=== PATIENT | male | born 1980 | race Hispanic/Latino ===

== ENCOUNTER 2018-06-23 14:44 | Observation (INO) | payer SELFPAY ==
[2018-06-23] MEDS ORDERED: Bupivacaine/Epinephrine 0.25% 30 ML VIAL ONE (15:14)
[2018-06-23] MEDS ORDERED: cefOXitin Sodium/Dextrose,Iso 2 GM in Premix Bag 1 BAG IVPB SCH (15:15)
[2018-06-23] MEDS ORDERED: Famotidine/PF 20 mg/2ml Vial ONE (15:24)
[2018-06-23] MEDS ORDERED: Meperidine HCl/PF 25 MG/ML VIAL ONE (15:24)
[2018-06-23] MEDS ORDERED: Fentanyl 100 MCG/2 ML VIAL ONE (15:24)
[2018-06-23] MEDS ORDERED: Midazolam HCl 2 mg/2 ml Vial ONE (15:57)
--- NOTE | 2018-06-23 16:20 | HP ---
HISTORY OF PRESENT ILLNESS: Mr. Dan is a 37-year-old man, [place]-speaking only, who presented to [facility] in [place], complaining of insidious onset of periumbilical abdominal pain, which started 2 days previously. Pain was associated with abdominal bloating and since then in right lower quadrant. Pain was associated with episodes of nonbilious emesis. Last episode of emesis was yesterday. Patient attempted to have breakfast this morning with poor oral intake of tacos. He admits to some chills, although unsure if he has had any fever. He denies any diarrhea. PAST MEDICAL HISTORY: Denies any previous medical problems. PAST SURGICAL HISTORY: He denies any past surgeries except for repair of laceration to the left wrist. 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 He admits to drinking 6 pack of beer a day and since onset of his abdominal pain , he has only had one beer. He denies any cigarette smoking or illicit drug abuse. FAMILY HISTORY: The patient denies any family history of diabetes mellitus, hypertension, heart disease, or cancer. PREHOSPITALIZATION MEDICATIONS: None. ALLERGIES: THE PATIENT DENIES ANY KNOWN DRUG ALLERGIES. REVIEW OF SYSTEMS: 10-point review of systems is essentially unremarkable except as stated in past medical history and chief complaint. PHYSICAL EXAMINATION: GENERAL: This reveals a 37-year-old normally developed man, who is otherwise coherent, interactive, and appears stated age. The patient is alert and oriented x3. Appears to be in no acute distress at the time of my evaluation. VITAL SIGNS: Blood pressure is 106/64, pulse 117, respiratory rate is 22, temperature of 100.1 degrees Fahrenheit, oxygen saturation 98% on room air. HEENT: Reveals normocephalic and atraumatic. Pupils are equal, round, reactive to light and accommodation. Extraocular muscles are intact bilaterally. No scleral icterus present. HEART: Reveals regular rate with sinus tachycardia. No murmurs or gallops auscultated. LUNGS: Clear to auscultation bilaterally. Breathing, regular and nonlabored. ABDOMEN: Soft and moderately distended. He has right lower quadrant tenderness at McBurney's. He has a positive Rovsing sign. Liver and spleen are otherwise nonpalpable below costal margin. EXTREMITIES: Reveal 2+ radial and pedal pulses bilaterally. No ankle edema is present. NEUROLOGIC: Reveals no focal deficits present. LABORATORY FINDINGS: Today includes a CBC obtained earlier at [facility] with 2100 white blood cells, hemoglobin and hematocrit of 13.7 and 41.7 respectively, platelet count is 129,000. Metabolic profile; sodium 133, potassium 4.1, chloride is 98, bicarb 21, BUN 9, creatinine 0.75, glucose 139, total bilirubin is 2.3, AST and ALT are elevated at 162 and 96 respectively. Serum lipase is normal at 50. PTT and INR normal at 32.8 seconds and 1.1 respectively. I have personally reviewed the CT scan of the abdomen and pelvis, which was obtained prior to transfer to our facility and this reveals a dilated appendix with periappendiceal fat stranding. No pneumoperitoneum or significant free fluid is noted. IMPRESSION: 1. Acute appendicitis. 2. Abnormal LFTs, likely secondary to chronic alcoholism. PLAN: 1. Laparoscopic appendectomy. 2. We will initiate prophylaxis against VTE 3. Above findings and plan have been discussed with the patient through a back tender insulation board and also in the presence of the patient's nurse. 4. I have advised the patient of the risks and benefits of the proposed surgery to include, but not limited to bleeding, infection, injury to bile duct or surrounding structures. 5. The patient indicates understanding of information provided. 6. I have answered all his questions. 7. The patient has granted consent for this admission and surgical intervention. Job ID: [id number] MTDD
[2018-06-23] MEDS ORDERED: Ondansetron PF 4 MG/2 ML Vial ONE (16:27)
[2018-06-23] MEDS ORDERED: Ketorolac Tromethamine 30 MG/ML VIAL ONE (16:27)
[2018-06-23] MEDS ORDERED: Rocuronium Bromide 10 MG/ML (10ML VIAL) ONE (16:27)
[2018-06-23] MEDS ORDERED: Succinylcholine Chloride 20 MG/ML 10 ml SYRINGE FS ONE (16:27)
[2018-06-23] MEDS ORDERED: Lidocaine 1% PF 5 ML VIAL ONE (16:27)
[2018-06-23] MEDS ORDERED: PROPOFOL 200 MG/20 ML VIAL ONE (16:27)
[2018-06-23] MEDS ORDERED: Glycopyrrolate 0.2 MG/ML 5 ML SYRINGE ONE (16:27)
[2018-06-23] MEDS ORDERED: Dexamethasone 20 MG/5 ML VIAL ONE (16:27)
[2018-06-23] MEDS ORDERED: Meperidine HCl/PF 25 MG/ML VIAL SLOW IVP PRN (16:54)
[2018-06-23] MEDS ORDERED: Promethazine HCl 25 MG/ML VIAL SLOW IVP PRN (16:54)
[2018-06-23] MEDS ORDERED: Ondansetron HCl/PF 4 MG/2 ML Vial IVP PRN (16:54)
[2018-06-23] MEDS ORDERED: Promethazine HCl 25 MG/ML VIAL IM PRN ×2 (16:54→18:07)
[2018-06-23] MEDS ORDERED: Dextrose 5% in Water 1,000 ML IV PRN (18:07)
[2018-06-23] MEDS ORDERED: hydrALAZINE 20 MG/ML VIAL SLOW IVP PRN (18:07)
[2018-06-23] MEDS ORDERED: traMADol HCl 50 MG TAB PO PRN ×2 (18:07)
[2018-06-23] MEDS ORDERED: Acetaminophen 325 MG TAB PO PRN (18:07)
[2018-06-23] MEDS ORDERED: Dextrose 50% Abboject 50 ML SYRINGE SLOW IVP PRN (18:07)
[2018-06-23] MEDS ORDERED: Ondansetron PF 4 MG/2 ML Vial IVP PRN (18:07)
[2018-06-23] MEDS ORDERED: Ketorolac Tromethamine 30 MG/ML VIAL IVP SCH (18:30)
[2018-06-23 18:33] VITALS: BMI 21.4
[2018-06-23] MEDS: Lactated Ringer's 1,000 ML IV SCH (19:27)
[2018-06-23] MEDS: Famotidine/PF 20 mg/2ml Vial SLOW IVP SCH (21:22)
[2018-06-23] MEDS: cefOXitin Sodium/Dextrose,Iso 2 GM in Premix Bag 1 BAG IVPB SCH (21:22)
[2018-06-24] MEDS: Ketorolac Tromethamine 30 MG/ML VIAL IVP SCH ×3 (00:30→13:14)
--- NOTE | 2018-06-24 01:03 | OP ---
DATE OF PROCEDURE: 06/23/2018 PREOPERATIVE DIAGNOSIS: Acute appendicitis. POSTOPERATIVE DIAGNOSIS: Acute appendicitis. OPERATION PERFORMED: Laparoscopic appendectomy. ANESTHESIA: General endotracheal. ESTIMATED BLOOD LOSS: Less than 5 mL. COUNTS: Sponge and instrument counts were verified as correct x2. COMPLICATIONS: None apparent at the time of operation. INDICATIONS FOR OPERATION: A 37-year-old man, presented with a 2-day history of abdominal pain. Clinical radiographic examination was consistent with acute appendicitis for which the patient was brought to the operating room for laparoscopic appendectomy. Findings are consistent with suppurative but nonperforated appendix encased by omental adhesions. DESCRIPTION OF PROCEDURE: Informed consent was obtained from the patient, was brought to the operating room and placed in supine position. Following general anesthesia, abdomen was sterilely prepped and draped in usual fashion. The skin below the umbilicus was infiltrated with 0.25% Marcaine with epinephrine. A small curvilinear infraumbilical incision was made using 11 scalpel. Umbilical stalk was grasped with a Tito and elevated. Veress needle was inserted through the incision and placed in the peritoneal cavity through which the abdomen was insufflated with 3 L of CO2 gas. Intraabdominal pressure was noted at 3 mmHg. Following abdominal insufflation, Veress needle was removed and a 5 mm trocar introduced using a Visiport under laparoscopy. Laparoscopy confirmed proper placement of the port, no injuries to underlying structures. Additional laparoscopy reveals the right lower quadrant encased by omental adhesions. Under direct laparoscopy, two 5 mm suprapubic and left lower quadrant ports were placed after the overlying skin were infiltrated with 0.25% Marcaine with epinephrine. Appropriate incision was made. The patient was placed in a Trendelenburg position, rotated to his left. I introduced a Prestige grasper through the left lower quadrant port, using this to bluntly take down omental adhesions to reveal a dilated suppurative appendix. I introduced the Endo Jluis forceps through the suprapubic port site grasping the appendix, which was elevated. The mesoappendix was then serially divided at the base using the LigaSure device with good hemostasis. The appendix itself was divided at the appendiceal-cecal junction between endo-loops. The appendix was delivered of the abdominal cavity using an EndoCatch. Operative site was inspected for good hemostasis. Finding no other pathology, laparoscopy was terminated. Fascia of the left lower quadrant port was closed using 0 Vicryl suture and Endoclosure device on the laparoscopy. The abdomen was desufflated. All ports and instruments were removed and accounted for. Skin incisions were closed using 4-0 Monocryl suture in subcuticular fashion. Dermabond was applied over incisional closure. The patient tolerated this operation without any apparent complication and was returned to recovery room in satisfactory condition. Job ID: [id number]
[2018-06-24] MEDS: Famotidine 20 MG TAB PO SCH ×2 (04:58→13:14)
[2018-06-24 05:29] LABS: Anion Gap 12 mmol/L (10-20); BUN (Urea Nitrogen) 7 mg/dL (8.9-20.6); Calc. Creatinine Clearance 107 mL/min (70-130); Calcium 8.9 mg/dL (7.8-10.44); Carbon Dioxide 27 mmol/L (22-29); Chloride 108 mmol/L (98-107); Estimated GFR-MDRD Greater than 90; Glucose 119 mg/dL (70-105); Potassium 4.3 mmol/L (3.5-5.1); Sodium 143 mmol/L (136-145)
[2018-06-24 05:32] LABS: Band 29 % (5-11); Hemoglobin 12.9 g/dL (14.0-18.0); Lymphocytes 4 % (21-51); MDiff Complete? YES; Mean Corpuscular HGB CONC 34.1 g/dL (32.0-36.0); Mean Corpuscular Hemoglobin 33.3 pg (27.0-31.0); Mean Corpuscular Volume 97.7 fL (78.0-98.0); Mean Platelet Volume 9.6 fL (7.4-10.4); Metamyelocyte 2 % (0-0); Monocytes 9 % (0-10); Neutrophil 55 % (42-75); Platelet Count 111 thou/uL (130-400); Platelet Morphology Comment Appears Decreased; RBC Distribution Width 11.9 % (11.5-14.5); RBC Morphology Normal; Reactive Lymphocytes 1 % (0-10); Red Blood Cell (RBC) Count 3.88 mill/uL (4.70-6.10)
[2018-06-24] MEDS: cefOXitin Sodium/Dextrose,Iso 2 GM in Premix Bag 1 BAG IVPB SCH (06:14)
[2018-06-24] MEDS ORDERED: Enoxaparin Sodium 40 MG/0.4 ML SYRINGE SC SCH (09:00)
[2018-06-24] MEDS: Famotidine/PF 20 mg/2ml Vial SLOW IVP SCH (11:39)
[2018-06-24 12:03] VITALS: BP 129/80; TEMP 98.7
[2018-06-24] MEDS: Lactated Ringer's 1,000 ML IV SCH (13:15)
[2018-06-24] MEDS ORDERED: Amoxicillin/Potassium Clav 875 MG TAB PO SCH (21:00)
--- NOTE | 2018-06-25 01:19 | DIS ---
DATE OF ADMISSION: 06/23/2018 DATE OF DISCHARGE: 06/24/2018 ADMITTING PHYSICIAN: Lamont Huerta DO DISCHARGING PHYSICIAN: Lamont Huerta DO ADMITTING DIAGNOSIS: Acute appendicitis. DISCHARGE DIAGNOSIS: Acute appendicitis. OPERATION PERFORMED: Laparoscopic appendectomy on 06/23/[address] Huerta, please see a separate dictation for operative report. HISTORY AND HOSPITAL COURSE: A 37-year-old man, presented with 2-day history of abdominal pain. Clinical radiographic examination was consistent with acute appendicitis for which the patient underwent an uneventful laparoscopic appendectomy yesterday. Following surgery, the patient is admitted to surgical floor, where he remained at time of discharge. On postop day #1, he is ambulating with minimum difficulty. He is tolerating diet, having normal bowel and urinary function. His pain is adequately controlled on oral analgesics. Incisional wound remains intact, clean, dry. He has no gross peritoneal signs on examination. The patient remained hemodynamically stable and afebrile throughout hospitalization. DISCHARGE INSTRUCTIONS: He has been discharged today with the following instructions: 1. He follows up with me in the Surgery Clinic in 10 days. 2. He is encouraged to ambulate daily to avoid complications of venous thromboembolism. 3. He may take Tylenol 1000 mg p.o. q.6 hours p.r.n. pain alternating this with ibuprofen 400 mg p.o. q.8 hours p.r.n. pain. 4. Additionally, he is given a prescription for tramadol 50 mg, #30 to be taken 1 to 2 p.o. q.6 hours p.r.n. pain. 5. He is instructed to avoid weightlifting in excess of 20 pounds until he has been released by me. 6. He is to call me with any questions or problems including exacerbation of abdominal pain, fever in excess of 101 degrees Fahrenheit, or intolerance to oral intake. These instructions were given to the patient through a motor vehicle parts interpreter. The patient indicated understanding of information given. I have answered his questions. Job ID: [id number]
== END 2018-06-24 14:15 | disposition home or self-care (01) ==
LOC: SDC 14:44 → SURG A 17:56 → OBSVTOIN 17:56 → INTOOBSV 17:56
PROVIDERS: ADMIT Surgery; ATTEND Surgery
PROC: 0DTJ4ZZ Resection of Appendix, Percutaneous Endoscopic Approach (ICD-10-PCS; principal; 2018-06-23)
DX: K35.80 Unspecified acute appendicitis (principal)
CPT/HCPCS: 36415; 80048; 85025; 88304; 96361; 96365; 96366; 96375; 96376; G0378; J0131; J0694; J1100; J1650; J1885; J2001; J2175; J2250; J2405; J2704; J3010; S0028

== ENCOUNTER 2020-11-27 17:59 | Inpatient (IN) | payer SELFPAY ==
[2020-11-27] MEDS ORDERED: hydrALAZINE 20 MG/ML VIAL SLOW IVP PRN (21:01)
[2020-11-27] MEDS ORDERED: Ondansetron PF 4 MG/2 ML Vial IVP PRN (21:01)
[2020-11-27] MEDS ORDERED: Nitroglycerin 0.4 MG TAB (25 Tab Bottle) SL PRN (21:01)
[2020-11-27] MEDS ORDERED: Acetaminophen 650 MG Suppository PR PRN (21:01)
[2020-11-27] MEDS ORDERED: Labetalol HCl 100 MG/20 ML VIAL SLOW IVP PRN (21:01)
[2020-11-27] MEDS ORDERED: Lorazepam 2 MG/ML VIAL SLOW IVP PRN (21:09)
[2020-11-27] MEDS: Multivitamins, Adult 10 ML, Folic Acid 1 MG, Thiamine HCl 100 MG in Dextrose 5 %-0.45 %... IV SCH (22:16)
[2020-11-27 22:45] VITALS: BMI 21.2
[2020-11-28] MEDS: Melatonin 3 MG TAB PO PRN ×2 (00:03→21:05)
[2020-11-28 06:01] LABS: Hemoglobin A1c 5.1 % (4.0-6.0)
[2020-11-28 06:08] LABS: ALT (SGPT) 65 U/L (8-55); AST (SGOT) 127 U/L (5-34); Albumin 3.7 g/dL (3.5-5.0); Alkaline Phosphatase 99 U/L (40-110); Anion Gap 14 mmol/L (10-20); BUN (Urea Nitrogen) 5 mg/dL (8.9-20.6); Calc. Creatinine Clearance 112 mL/min (70-130); Calcium 8.4 mg/dL (7.8-10.44); Carbon Dioxide 27 mmol/L (22-29); Cardiac Risk 5.4 (Less than 4.5); Chloride 100 mmol/L (98-107); Cholesterol 283 mg/dl (< 200 Desired); Globulin 3.6 g/dL (2.4-3.5); Glucose 88 mg/dL (70-105); HDL Cholesterol 52 mg/dL (>60 Neg Risk); LDL Cholesterol, Calculated 192 mg/dL; Potassium 3.5 mmol/L (3.5-5.1); Protein, Total 7.3 g/dL (6.0-8.3); Sodium 137 mmol/L (136-145); Triglycerides 197 mg/dL (Less than 150)
[2020-11-28 08:55] LABS: #Eosinphils 0.2 thou/uL (0.0-0.7); #Lymphocytes 1.4 thou/uL (1.20-3.40); #Monocytes 0.8 thou/uL (0.11-0.59); #Neutrophils 3.7 thou/uL (1.40-6.50); %Basophils 0.8 % (0.0-1.0); %Lymphocytes 22.6 % (21.0-51.0); %Monocytes 12.4 % (0.0-10.0); %Neutrophils 61.2 % (42.0-75.0); Hemoglobin 16.4 g/dL (14.0-18.0); Mean Corpuscular HGB CONC 32.9 g/dL (32.0-36.0); Mean Platelet Volume 9.3 fL (7.4-10.4); Platelet Count 107 thou/uL (130-400); Red Blood Cell (RBC) Count 4.97 mill/uL (4.70-6.10); White Blood Cell (WBC) Count 6.1 thou/uL (4.8-10.8)
[2020-11-28] MEDS ORDERED: Aspirin 300 MG Suppository PR SCH (09:00)
[2020-11-28] MEDS ORDERED: ADENOSINE 60 MG/20 ML VIAL ONE (09:30)
[2020-11-28] MEDS ORDERED: Aspirin 325 mg Enteric Coated Tablet PO SCH ×2 (15:15→15:30)
[2020-11-28] MEDS ORDERED: Morphine 2 MG/ML VIAL SLOW IVP PRN (16:03)
[2020-11-28] MEDS ORDERED: Atorvastatin Calcium 40 MG TAB PO SCH (21:00)
[2020-11-28] MEDS ORDERED: Enoxaparin Sodium 40 MG/0.4 ML SYRINGE SC SCH (21:00)
[2020-11-28] MEDS: Multivitamins, Adult 10 ML, Folic Acid 1 MG, Thiamine HCl 100 MG in Dextrose 5 %-0.45 %... IV SCH (21:18)
[2020-11-28 23:55] LABS: SARS-CoV-2 PCR by NAA Not Detected (NotDetected)
[2020-11-29 05:56] LABS: ALT (SGPT) 76 U/L (8-55); AST (SGOT) 163 U/L (5-34); Albumin 3.7 g/dL (3.5-5.0); Alkaline Phosphatase 101 U/L (40-110); Anion Gap 13 mmol/L (10-20); BUN (Urea Nitrogen) 4 mg/dL (8.9-20.6); Bilirubin, Total 2.4 mg/dL (0.2-1.2); Calc. Creatinine Clearance 119 mL/min (70-130); Calcium 8.1 mg/dL (7.8-10.44); Carbon Dioxide 24 mmol/L (22-29); Chloride 103 mmol/L (98-107); Globulin 3.5 g/dL (2.4-3.5); Glucose 104 mg/dL (70-105); Potassium 3.6 mmol/L (3.5-5.1); Protein, Total 7.2 g/dL (6.0-8.3); Sodium 136 mmol/L (136-145)
[2020-11-29 06:24] LABS: Band 2 % (5-11); Eosinophils 3 % (0-10); Hemoglobin 16.1 g/dL (14.0-18.0); Lymphocytes 34 % (21-51); MDiff Complete? YES; Mean Corpuscular HGB CONC 33.1 g/dL (32.0-36.0); Mean Corpuscular Hemoglobin 33.5 pg (27.0-31.0); Mean Platelet Volume 9.1 fL (7.4-10.4); Monocytes 11 % (0-10); Neutrophil 49 % (42-75); Platelet Count 106 thou/uL (130-400); Platelet Morphology Comment Appears Decreased; RBC Distribution Width 11.9 % (11.5-14.5); Red Blood Cell (RBC) Count 4.82 mill/uL (4.70-6.10); White Blood Cell (WBC) Count 5.6 thou/uL (4.8-10.8)
[2020-11-29] MEDS ORDERED: Aspirin 325 mg Enteric Coated Tablet PO SCH (09:00)
[2020-11-29] MEDS ORDERED: Acetaminophen 325 MG TAB PO PRN (09:39)
[2020-11-29 12:27] VITALS: BP 133/97; TEMP 98.2
[2020-11-29 16:47] LABS: PTT 30.8 sec (22.9-36.1); Prothrombin Time 12.7 sec (12.0-14.7)
[2020-11-29 16:48] LABS: D-Dimer Test 0.42 *mcg/mL (0.27-0.43)
[2020-11-30 20:33] LABS: Cardiolipin IgA Ab 5.1 APL-U/mL (<14 Negative); EliA APS New Method **** NEW METHOD ****
[2020-12-01 11:16] LABS: Factor VIII Test 285.9 % ACTIVE (56-157)
[2020-12-01 12:52] LABS: HEX PHOS LA Tube 1 45.5 SEC; HEX PHOS LA Tube 2 41.3 SEC; Hexagonal Phospholipid Neut 4.2 SEC (0-8.0); Protein C Activity 105 % (78-152)
== END 2020-11-29 17:05 | disposition home or self-care (01) | DRG 69 ==
LOC: 3SE 18:39 → OBSVTOIN 11-28 15:09
PROVIDERS: ADMIT Internal Medicine; ATTEND Hospitalist
PROC: HZ2ZZZZ Detoxification Services for Substance Abuse Treatment (ICD-10-PCS; principal; 2020-11-28)
DX: G45.9 Transient cerebral ischemic attack, unspecified (principal); R07.89 Other chest pain; E78.5 Hyperlipidemia, unspecified; D69.59 Other secondary thrombocytopenia; R74.01 Elevation of levels of liver transaminase levels; Z20.822 Contact with and (suspected) exposure to COVID-19; F10.10 Alcohol abuse, uncomplicated; Z90.49 Acquired absence of other specified parts of digestive tract
CPT/HCPCS: 36415; 70551; 72125; 74176; 78452; 80053; 80061; 83036; 83090; 84443; 85025; 85240; 85300; 85303; 85305; 85307; 85379; 85598; 85610; 85730; 86147; 93306; 93880; A9500; G0378; J1650; J3411; J7042; U0003; U0005